=== PATIENT | female | born 1960 | race Caucasian/White ===

== ENCOUNTER 2019-06-20 12:17 | Emergency (ER) | payer MEDICAID ==
[2019-06-20] MEDS ORDERED: SODIUM CHLORIDE 0.9% 1,000 ML IV STA (12:56)
[2019-06-20] MEDS ORDERED: KETOROLAC 30 MG/ML 1 ML VIAL IVP STA (12:56)
[2019-06-20] MEDS ORDERED: ONDANSETRON 4 MG/2 ML VIAL IVP STA (12:56)
[2019-06-20] MEDS ORDERED: PANTOPRAZOLE 40 MG/10 ML VIAL IVP STA (12:56)
--- NOTE | 2019-06-20 13:03 | ED ---
Abdominal Pain HPI - General Chief Complaint: Abdominal Pain Stated Complaint: Nausea/Abdominal pain Time Seen by Provider: 06/20/19 12:42 Source: patient Mode of arrival: ambulatory Limitations: no limitations - History of Present Illness Initial Comments: Patient is 59-year-old female presenting to emergency Department with a chief complaint of abdominal pain. Patient reports over the last 2 weeks she is developed some constipation for which she used a stool softener and was able to have some bowel movements that were semisolid. Patient does report nausea but no vomiting. Does report increased frequency but denies urgency or dysuria. States the abdominal pain was initially diffuse but is now only located in the left flank region wrote a to the left groin. No previous abdominal hernia surgeries. No hematuria, hematochezia melena. - Related Data Previous Rx's Medication Instructions Recorded Ondansetron Odt [Zofran Odt] 4 mg PO Q8HR PRN #30 tab 06/20/19 Allergies Allergy/AdvReac Type Severity Reaction Status Date / Time No Known Allergies Allergy Verified 06/20/19 12:23 Review of Systems ROS Statement: Those systems with pertinent positive or pertinent negative responses have been documented in the HPI. ROS Other: All systems not noted in ROS Statement are negative. Past Medical History Past Medical History: No Reported History History of Any Multi-Drug Resistant Organisms: None Reported Past Surgical History: Appendectomy Past Psychological History: No Psychological Hx Reported Smoking Status: Current every day smoker Past Alcohol Use History: Rare Past Drug Use History: None Reported General Exam Limitations: no limitations General appearance: alert, in no apparent distress Head exam: Present: atraumatic, normocephalic, normal inspection Eye exam: Present: normal appearance, PERRL, EOMI Pupils: Present: normal accommodation ENT exam: Present: normal exam, mucous membranes moist Neck exam: Present: normal inspection, full ROM Respiratory exam: Present: normal lung sounds bilaterally Cardiovascular Exam: Present: regular rate, normal rhythm, normal heart sounds GI/Abdominal exam: Present: soft, tenderness (Mild diffuse abdominal tenderness). Absent: distended, guarding, rebound, rigid Extremities exam: Present: normal inspection, full ROM Back exam: Present: normal inspection, full ROM Neurological exam: Present: alert, oriented X3 Psychiatric exam: Present: normal affect, normal mood Skin exam: Present: warm, dry, intact, normal color Course Vital Signs 06/20/19 06/20/19 12:19 14:47 Temperature 98.6 F 98.0 F Pulse Rate 97 72 Respiratory 20 18 Rate Blood Pressure 137/78 122/70 O2 Sat by Pulse 98 98 Oximetry Medical Decision Making - Medical Decision Making Patient is a 59-year-old female presenting to emergency Department with a chief complaint of abdominal pain. She does have abdominal discomfort and mild abdominal tenderness that is diffuse on physical examination. Patient was given fluids, antiemetics and analgesia. Our evaluation patient reports improvement in symptoms. Laboratory workup is unremarkable. KUB shows air-fluid level suggesting enteritis. I suspect this could be one of the causes for irregularities in her bowel patterns. Patient advised to follow-up with primary care. Patient discharged with Zofran. Strict return parameters were thoroughly discussed with patient was understanding and agreeable. Case discussed with physician. - Lab Data Result diagrams: 06/20/19 13:14 06/20/19 13:14 Lab Results 06/20/19 06/20/19 06/20/19 Range/Units 13:14 13:14 13:14 WBC 7.6 (3.8-10.6) k/uL RBC 4.73 (3.80-5.40) m/uL Hgb 14.2 (11.4-16.0) gm/dL Hct 43.2 (34.0-46.0) % MCV 91.3 (80.0-100.0) fL MCH 30.0 (25.0-35.0) pg MCHC 32.9 (31.0-37.0) g/dL RDW 11.9 (11.5-15.5) % Plt Count 244 (150-450) k/uL Neutrophils % 72 % Lymphocytes % 19 % Monocytes % 4 % Eosinophils % 3 % Basophils % 1 % Neutrophils # 5.4 (1.3-7.7) k/uL Lymphocytes # 1.4 (1.0-4.8) k/uL Monocytes # 0.3 (0-1.0) k/uL Eosinophils # 0.2 (0-0.7) k/uL Basophils # 0.1 (0-0.2) k/uL Sodium 142 (137-145) mmol/L Potassium 4.0 (3.5-5.1) mmol/L Chloride 107 (98-107) mmol/L Carbon Dioxide 25 (22-30) mmol/L Anion Gap 10 mmol/L BUN 9 (7-17) mg/dL Creatinine 0.88 (0.52-1.04) mg/dL Est GFR (CKD-EPI)AfAm 83 (>60 ml/min/1.73 sqM) Est GFR (CKD-EPI)NonAf 72 (>60 ml/min/1.73 sqM) Glucose 91 (74-99) mg/dL Calcium 9.6 (8.4-10.2) mg/dL Total Bilirubin 0.5 (0.2-1.3) mg/dL AST 21 (14-36) U/L ALT 12 (4-34) U/L Alkaline Phosphatase 126 (38-126) U/L Total Protein 7.5 (6.3-8.2) g/dL Albumin 4.5 (3.5-5.0) g/dL Amylase 74 (30-110) U/L Lipase 184 (23-300) U/L Urine Color Light Yellow Urine Appearance Clear (Clear) Urine pH 6.0 (5.0-8.0) Ur Specific [place] 1.004 (1.001-1.035) Urine Protein Negative (Negative) Urine Glucose (UA) Negative (Negative) Urine Ketones Negative (Negative) Urine Blood Negative (Negative) Urine Nitrite Negative (Negative) Urine Bilirubin Negative (Negative) Urine Urobilinogen <2.0 (<2.0) mg/dL Ur Leukocyte Esterase Negative (Negative) Disposition Clinical Impression: Enteritis, Abdominal pain Disposition: HOME SELF-CARE Condition: Stable Instructions (If sedation given, give patient instructions): Abdominal Pain (ED) Additional Instructions: Please take prescribed medication as directed. Follow-up with primary care. Return to emergency department if symptoms worsen. Prescriptions: Ondansetron Odt [Zofran Odt] 4 mg PO Q8HR PRN #30 tab PRN Reason: Nausea Is patient prescribed a controlled substance at d/c from ED?: No Referrals: None,Stated [Primary Care Provider] - 1-2 days Time of Disposition: 14:36
[2019-06-20 13:28] LABS: Appearance,Urine Clear (Clear); Bilirubin,Urine Negative (Negative); Blood,Urine Negative (Negative); Color,Urine Light Yellow; Glucose,Urine (UA) Negative (Negative); Ketones,Urine Negative (Negative); Leukocyte Esterase,Urine Negative (Negative); Nitrite,Urine Negative (Negative); Protein,Urine Negative (Negative); Specific Gravity,Urine 1.004 (1.001-1.035); Urobilinogen,Urine <2.0 mg/dL (<2.0)
[2019-06-20 13:30] LABS: Basophils # (A) 0.1 k/uL (0-0.2); Basophils % (A) 1 %; Eosinophils # (A) 0.2 k/uL (0-0.7); Eosinophils % (A) 3 %; HCT 43.2 % (34.0-46.0); HGB 14.2 gm/dL (11.4-16.0); Lymphocytes # (A) 1.4 k/uL (1.0-4.8); Lymphocytes % (A) 19 %; MCHC 32.9 g/dL (31.0-37.0); MCV 91.3 fL (80.0-100.0); Mean Platelet Volume 9.6; Monocytes # (A) 0.3 k/uL (0-1.0); Monocytes % (A) 4 %; Neutrophils # (A) 5.4 k/uL (1.3-7.7); Neutrophils % (A) 72 %; Platelet Count 244 k/uL (150-450); RBC 4.73 m/uL (3.80-5.40); RDW 11.9 % (11.5-15.5); WBC 7.6 k/uL (3.8-10.6)
[2019-06-20 13:39] LABS: Albumin 4.5 g/dL (3.5-5.0); Calcium 9.6 mg/dL (8.4-10.2); Total Bilirubin 0.5 mg/dL (0.2-1.3); Total Protein 7.5 g/dL (6.3-8.2)
--- NOTE | 2019-06-20 13:57 | XR ---
KUB HISTORY: Abdominal pain, nausea and vomiting Frontal KUB and 2 images Lung bases are clear. There is no evident bowel obstruction or pneumoperitoneum. Suspect there are osorio rgical clips in the right lower quadrant. Probable vascular calcifications within the pelvis. There a re air-fluid levels without bowel distention. There is a dextroscoliosis centered at L2. IMPRESSION: Correlate for enteritis, ileus, follow-up as indicated
[2019-06-20 14:48] VITALS: BP 122/70; PULSE 72; RESP 18; TEMP 98
== END 2019-06-20 14:47 | disposition home or self-care (01) ==
LOC: EC 12:17
DX: K52.9 Noninfective gastroenteritis and colitis, unspecified (principal); F17.200 Nicotine dependence, unspecified, uncomplicated; Z90.49 Acquired absence of other specified parts of digestive tract
CPT/HCPCS: 36415; 74018; 80053; 81003; 82150; 83690; 85025; 96361; 96374; 96375; 99284

== ENCOUNTER → 2019-08-14 | Outpatient (CLI) | payer MEDICAID ==
--- NOTE | 2019-08-14 13:39 | CT ---
EXAMINATION TYPE: CT abdomen pelvis w con DATE OF EXAM: 08/14/2019 HISTORY: Diverticulitis of large intestine . Pain and fever. CT DLP: 814.2mGycm Automated Exposure Control for Dose Reduction was Utilized. CONTRAST: CT scan of the abdomen and pelvis is performed with IV Contrast, patient injected with 100 ml mL of I sovue 300. COMPARISON: None. FINDINGS: LUNG BASES: Linear scarring or atelectasis lingula axial image 1. LIVER/GB: No significant abnormality is appreciated. PANCREAS: No significant abnormality is seen. SPLEEN: No significant abnormality is seen. ADRENALS: No significant abnormality is seen. KIDNEYS: No significant abnormality is seen. BOWEL: The oral contrast reaches the level of the splenic flexure making evaluation of distal bowel s lightly suboptimal. Cecum is slightly wandering and position anteriorly to the lower midabdomen. Cecu m is mildly prominent. There is no suspicious small bowel dilatation. Terminal ileum thought present from the lateral aspect of cecum coronal image 31. There is mild to moderate wall thickening in the s igmoid colon with more moderate to severe concentric wall thickening sigmoid rectal colon. There is m ild to moderate ill-defined fluid and fat stranding in the pelvis extending posteriorly into the pres acral space. UTERUS/ADNEXA: Anteverted uterus. Scattered pelvic phleboliths. LYMPH NODES: No greater than 1cm abdominal or pelvic lymph nodes are appreciated. OSSEOUS STRUCTURES: No significant abnormality is seen. OTHER: No significant additional abnormality is seen. IMPRESSION: 1. Abnormality in the mid to distal sigmoid colon through the rectum centered in the pelvis with ill- defined fluid and fat stranding extending into the presacral space. A fairly moderate acute uncomplic ated distal colitis is suspected. Findings could be product of acute diverticulitis as there are few scattered sigmoid colonic diverticula noted. I am however suspicious as degree of wall thickening is out of proportion to expected in the distal sigmoid colon and rectum with some eccentric appearance f or reference coronal image 66 and I advise follow-up colonoscopy after treatment to rule out neoplasm .
== END | disposition home or self-care (01) ==
LOC: RADCTMAIN 11:11
PROVIDERS: ATTEND Surgery
DX: R93.3 Abnormal findings on diagnostic imaging of other parts of digestive tract (principal); R93.89 Abnormal findings on diagnostic imaging of other specified body structures; K57.30 Diverticulosis of large intestine without perforation or abscess without bleeding
CPT/HCPCS: 74177; Q9967

== ENCOUNTER 2019-08-20 08:23 | Day surgery (SDC) | payer MEDICAID ==
[2019-08-18 15:03] VITALS: BMI 27.8
[~2019-08-20 08:23] MED LIST: DEXAMETHASONE SOD PHOSPHATE 10 MG/ML 1 ML VIAL IV ONE; LACTATED RINGERS 1,000 ML IV SCH; ONDANSETRON 4 MG/2 ML VIAL IVP ONE
[2019-08-20 08:48] VITALS: TEMP 98.5
[2019-08-20] MEDS ORDERED: LIDOCAINE 1% (10MG/ML) FOR IV START INTRADERMA ONE (08:48)
[2019-08-20] MEDS ORDERED: LACTATED RINGERS 1,000 ML IV ONE (08:48)
--- NOTE | 2019-08-20 08:59 | P.GSHP ---
History of Present Illness H&P Date: 08/20/19 Chief Complaint: Rectal bleeding 59-year-old female has had complaints of change in bowel habits along with rectal bleeding and left lower quadrant pain. Underwent recent CAT scan showing thickening of the rectum with some inflammatory changes in the pelvis. Was started on antibiotics. Symptoms have been going on for the last 2-3 months. No fevers. Last colonoscopy normal. Past Medical History Past Medical History: No Reported History Additional Past Medical History / Comment(s): "stomach issues" History of Any Multi-Drug Resistant Organisms: None Reported Past Surgical History: Appendectomy Past Anesthesia/Blood Transfusion Reactions: No Reported Reaction Smoking Status: Current every day smoker - Past Family History Mother Family Medical History: No Reported History Medications and Allergies Home Medications Medication Instructions Recorded Confirmed Type Levofloxacin [Levaquin] 500 mg PO DAILY 7 Days #7 tab 08/15/19 08/18/19 Rx Allergies Allergy/AdvReac Type Severity Reaction Status Date / Time No Known Allergies Allergy Verified 08/18/19 14:58 Surgical - Exam Physical exam: General: Well-developed, well-nourished HEENT: Normocephalic, sclerae nonicteric Abdomen: Mild left lower quadrant tenderness, nondistended Extremities: No edema Neuro: Alert and oriented Assessment and Plan (1) Rectal bleeding Narrative/Plan: Will proceed with colonoscopy at this time Status: Acute Code(s): K62.5 - HEMORRHAGE OF ANUS AND RECTUM SNOMED Code(s): 89247981
[2019-08-20] MEDS ORDERED: PROPOFOL 10 MG/ML 20 ML VIAL IV ONE (09:43)
--- NOTE | 2019-08-20 10:18 | P.PCN ---
Date of Procedure: 08/20/19 Procedure(s) Performed: PREOPERATIVE DIAGNOSIS: Rectal bleeding, change in bowel habits, abnormal CAT scan POSTOPERATIVE DIAGNOSIS: Rectal mass, ascending colon polyp, diverticulosis PROCEDURE: Colonoscopy with snare polypectomy and biopsy ANESTHESIA: MAC SURGEON: Andrea Levi M.D. SPECIMENS: Ascending colon polyp, rectal mass ENDOSCOPIC PROCEDURE: The patient was placed on the endoscopy table in the left decubitus position. The Olympus colonoscope was inserted into the anus and passed under direct visualization to the base of the cecum. The appendiceal orifice was visualized. From that point the scope was slowly withdrawn inspecting all surfaces carefully. There were no neoplastic inflammatory or polypoid lesions throughout the cecum. In the mid ascending colon a 1-1.5 cm sessile polyp was removed as one piece using the snare with cautery technique. The remainder of the ascending transverse and descending colon appeared normal. There was mild sided diverticulosis. Starting at approximately 18 cm and extending down to 5-6 cm was a large rectal mass. This appeared neoplastic. N umerous biopsies with the cold biopsy forceps took place. By palpation this was present at 4-5 cm. This was circumferential in certain areas. The scope was able to navigate through this with only mild difficulty. The patient was taken to the recovery room in stable condition per anesthesia guidelines. RECOMMENDATIONS: Patient already had screening CAT scan. Patient will benefit from pelvic radiation. We'll arrange outpatient referral to both oncology and radiation oncology at this point. Await biopsies.
[2019-08-20 10:41] VITALS: BP 132/82; PULSE 62; RESP 18
== END 2019-08-20 11:10 | disposition home or self-care (01) ==
LOC: ORWHC2ENDO 08:23
PROVIDERS: ATTEND Surgery
DX: D01.2 Carcinoma in situ of rectum (principal); D12.2 Benign neoplasm of ascending colon; K57.31 Diverticulosis of large intestine without perforation or abscess with bleeding; F17.200 Nicotine dependence, unspecified, uncomplicated; Z90.49 Acquired absence of other specified parts of digestive tract
CPT/HCPCS: 88305; 45380; 45385; J2704

== ENCOUNTER → 2019-08-25 | Outpatient (CLI) | payer MEDICAID ==
--- NOTE | 2019-08-26 09:03 | MR ---
EXAMINATION TYPE: MR pelvis wo/w con DATE OF EXAM: 08/25/2019 COMPARISON: CT abdomen pelvis dated 08/14/2019 HISTORY: Rectal mass. Prior surgical history of appendectomy. Standard multiplanar, multisequence MRI departmental protocol utilizing 7 mL intravenous Gadavist gadolinium contrast. FINDINGS: Beginning approximately 6.1 cm from the anal verge there is eccentric predominantly anterior wall thi ckening becoming a circumferential enhancing annular mass on axial T2 nonfat sat image 28. The rectal mass continues at least 4.0 cm however there is sigmoid circumferential wall thickening in the visua lized portions of the distal sigmoid colon that may be residual from the recent inflammatory process. The normal T2 hypointense band representing the muscularis propria has a hazy margin posteriorly lef t laterally on image 32 of the T2 nonfat sat axial sequence with haziness of the mesial rectal fat. T his is also seen anteriorly on image 32. On the most cranial image there are morphologically abnormal lymph nodes abutting the left lateral aspect of the cranial rectum.r the lymph nodes measure up to 5 mm in short axis and there are at least 4 abnormal-appearing lymph nodes. There is no involvement of the cervix nor lower uterine segment as the mass does not abut the uterus nor cervix and there is a clean fat plane between the 2. There remains fat stranding contained within the mesorectal fat with no extension beyond the medial rectal fat. The submucosa within the measured tumor is hypointense indicative of submucosal involvement. Sigmoid diverticula are seen more proximally in the sigmoid colon without proximal pericolonic fat st randing. Incidental note of a nabothian cyst within the cervix, a benign finding. No internal nor ext ernal iliac chain inguinal adenopathy or superficial inguinal adenopathy seen. Bone marrow signal of the visualized osseous structures appears grossly unremarkable. IMPRESSION: The known rectal carcinoma is questioned to be subtly stage T3 as there is disruption of the muscular is propria with few spiculations into the mesorectal fat. However given the mild appearance and minim al disruption this could also represent benign desmoplastic reaction. There is involvement multifocal ly of the submucosa and abnormal (at least 4) perirectal lymph node in the mesorectal fat. The tumor extends at least 4 cm beginning approximately 6.1 cm from the anal verge, however there is circumfere ntial thickening of the adjacent sigmoid colon and fat stranding into the presacral space that may be residual from the recent inflammatory colitis/diverticulitis. No suspicious osseous lesions in the v isualized pelvis.
== END | disposition home or self-care (01) ==
LOC: RADMRIMAIN 09:36
PROVIDERS: ATTEND Surgery
DX: C20 Malignant neoplasm of rectum (principal)
CPT/HCPCS: 72197; A9585

== ENCOUNTER → 2019-08-29 | Outpatient (CLI) | payer MEDICAID ==
--- NOTE | 2019-09-01 12:01 | PE ---
Nuclear medicine PET/CT HISTORY: Colorectal carcinoma, initial Patient received 9.1 mCi F-18 FDG intravenously in delayed scanning was performed from the skull base to the mid thighs. Localization and attenuation correction CT scan was performed. Correlation CT scan 08/14/2019 neck and CHEST: There is no cervical adenopathy. No mediastinal, axillary, hilar, supraclavicular pascual nopathy. No suspicious hypermetabolic uptake. No evident lung mass. There is no pleural or pericardia l effusion. Likely some retained secretions within the trachea, posterior luminal abnormality noted. ABDOMEN: There is no ascites. No evident liver mass. No retroperitoneal adenopathy. Abnormal thickeni ng along the rectosigmoid colon is present, there is associated hypermetabolic uptake, SUV 13.8. Incr eased density within the localized fat at this level is again noted as previously described. Along th e left hemipelvis coursing into the left hemiabdomen, axial image #[id number] there is abnormal soft tis rudi which may represent adenopathy within the fat extending from the level of the rectal mass, hyperm etabolic uptake is associated, SUV 5.2. There is some fluid attenuation present in the presacral loca tion. Postop changes are noted to the colon at the level of the cecum, metallic densities are scatter ed in the right lower quadrant Osseous structures show no hypermetabolic uptake. IMPRESSION: Findings compatible with patient's history of colon carcinoma with probable adenopathy as described extending within the left pelvic fat and coursing cephalad in the lower left abdomen.
== END | disposition home or self-care (01) ==
LOC: RADPETMAIN 10:21
PROVIDERS: ATTEND Internal Medicine Hematology & Oncology
DX: C20 Malignant neoplasm of rectum (principal)
CPT/HCPCS: 78815; A9552

== ENCOUNTER → 2019-09-02 | Outpatient (CLI) | payer MEDICAID ==
[2019-09-02 12:34] LABS: Basophils % (A) 1 %; Eosinophils # (A) 0.2 k/uL (0-0.7); Eosinophils % (A) 2 %; HCT 43.1 % (34.0-46.0); HGB 14.5 gm/dL (11.4-16.0); Lymphocytes # (A) 1.9 k/uL (1.0-4.8); Lymphocytes % (A) 26 %; MCHC 33.7 g/dL (31.0-37.0); Mean Platelet Volume 9.3; Monocytes # (A) 0.4 k/uL (0-1.0); Monocytes % (A) 5 %; Neutrophils # (A) 4.8 k/uL (1.3-7.7); Neutrophils % (A) 66 %; Platelet Count 260 k/uL (150-450); RBC 4.68 m/uL (3.80-5.40); WBC 7.3 k/uL (3.8-10.6)
[2019-09-02 18:23] LABS: African American GFR (CKD) 70.9 (60.0-200.0); Albumin 4.6 g/dL (3.80-4.90); Albumin/Globulin Ratio 2.42 (1.60-3.17); Anion Gap 9.7 mmol/L (4.00-12.00); Calcium 9.8 mg/dL (8.7-10.3); Carbon Dioxide 26.3 mmol/L (21.6-31.8); Globulin 1.9 g/dL (1.6-3.3); Non-African American GFR(CKD) 61.2 (60.0-200.0); Potassium 4.3 mmol/L (3.5-5.5); Total Bilirubin 0.4 mg/dL (0.2-1.2); Total Protein 6.5 g/dL (6.2-8.2)
== END | disposition home or self-care (01) ==
LOC: LABWHC1 12:03
PROVIDERS: ATTEND Internal Medicine Hematology & Oncology
DX: C20 Malignant neoplasm of rectum (principal)
CPT/HCPCS: 36415; 80053; 82378; 85025

== ENCOUNTER → 2020-02-06 | Day surgery (SDC) | payer MEDICAID ==
[2020-02-03 11:16] VITALS: BMI 24.2
[~2020-02-06] MED LIST changes: +ACETAMINOPHEN TAB 500 MG TAB PO ONE; +HEPARIN SODIUM,PORCINE 100 UNIT/ML 5 ML VIAL IV ONE; +HEPARIN SODIUM,PORCINE 5,000 UNIT/ML 1 ML VIAL SQ ONE; +HYDROmorphone 0.5 MG/0.5 ML SYRINGE IVP PRN; +LIDOCAINE 1% INJ 10MG/ML (20 ML MDV) ONE; +LIDOCAINE 1% INJ 10MG/ML (20 ML MDV) SQ ONE; +MIDAZOLAM 2 MG/2 ML VIAL IV PRN; +MIDAZOLAM 2 MG/2 ML VIAL ONE; +NALOXONE 0.4 MG/ML 1 ML VIAL IV PRN; +PROPOFOL 10 MG/ML 20 ML VIAL IV ONE; +Pre Op ABX Message 1 EACH MISC MISCELLANE ONE; +SCOPOLAMINE 1.5MG/72HR PATCH TRANSDERM ONE; +SODIUM CHLORIDE 0.9% 100 ML with ceFAZolin 2,000 MG IV ONE; +fentaNYL (PF) 50 MCG/ML 2 ML AMP ONE; +traMADol 50 MG TAB PO PRN
--- NOTE | 2020-02-06 08:49 | P.GSHP ---
History of Present Illness H&P Date: 02/06/20 Chief Complaint: Rectal cancer 60-year-old female diagnosed with rectal cancer in August of this year. Patient underwent neoadjuvant chemoradiation followed by definitive resection at [facility]. Here today for Port-A-Cath placement for adjuvant chemo. She has not had a port previously. Past Medical History Past Medical History: Cancer Additional Past Medical History / Comment(s): RECTAL CANCER DX 08/20/19 History of Any Multi-Drug Resistant Organisms: None Reported Past Surgical History: Appendectomy, Bowel Resection Additional Past Surgical History / Comment(s): COLONOSCOPY. LOWER ANTERIOR RESECTION 12/24/19. TEMPORARY ILEOSTOMY Past Anesthesia/Blood Transfusion Reactions: No Reported Reaction Smoking Status: Former smoker - Past Family History Mother Family Medical History: No Reported History Medications and Allergies Home Medications Medication Instructions Recorded Confirmed Type Ibuprofen [Motrin Ib] 600 mg PO Q6H PRN 02/03/20 02/03/20 History Allergies Allergy/AdvReac Type Severity Reaction Status Date / Time No Known Allergies Allergy Verified 02/06/20 08:11 Surgical - Exam Vital Signs Temp Pulse Resp BP Pulse Ox 97.6 F 89 16 123/53 97 02/06/20 08:00 02/06/20 08:00 02/06/20 08:00 02/06/20 08:00 02/06/20 08:00 Physical exam: General: Well-developed, well-nourished HEENT: Normocephalic, sclerae nonicteric Abdomen: Nontender, nondistended, recent scars and ileostomy Extremities: No edema Neuro: Alert and oriented Assessment and Plan (1) Rectal cancer Narrative/Plan: Patient doing well at this time. We'll proceed with Port-A-Cath placement. Risks of bleeding, infection, DVT, pneumothorax, catheter malfunction, anesthesia related complications were discussed. The patient understands and wishes to proceed. Current Visit: Yes Status: Acute Code(s): C20 - MALIGNANT NEOPLASM OF RECTUM SNOMED Code(s): 373516359
[2020-02-06 09:49] VITALS: TEMP 98.3
--- NOTE | 2020-02-06 09:52 | P.OP ---
Date of Procedure: 02/06/20 Procedure(s) Performed: PREOPERATIVE DIAGNOSIS: Rectal cancer POSTOPERATIVE DIAGNOSIS: Same PROCEDURE: Port-A-Cath placement with fluoroscopic and ultrasound guidance SURGEON: Gurmeet EBL: Minimal ANESTHESIA: Sedation COMPLICATIONS: None OPERATIVE PROCEDURE: Patient was brought and placed on the operative table in the supine position. The patient was sedated per anesthesia that time. The chest and neck were prepped and draped in usual sterile fashion. The ultrasound probe was used to identify the location of the right internal jugular vein. The skin was localized with lidocaine. The Seldinger needle was advanced into the IJ under ultrasound guidance. The wire was advanced through the needle under fluoroscopic guidance into the superior vena cava. A port pocket was created in the right infraclavicular location. The catheter was tunneled from the wire entrance site to the port pocket. The port was then connected to the catheter. The dilator introducer was threaded over the guidewire. The guidewire and dilator were then removed. The catheter was advanced through the introducer and introducer was then removed. The tip was seen to be in the right atrial junction via fluoroscopy. A picture of the radiograph showing the tip at the radial digital junction was taken. Port was flushed with both saline and a Hep- Lock solution. There was good flow both in and out of the port. The port was sutured in underlying tissues using 3-0 silk sutures. The subcutaneous tissues were reapproximated using 3-0 Vicryl sutures and the skin at both locations using 4-0 Monocryl sutures. Skin glue and sterile dressings then applied. DISPOSITION: Stable to recovery room
[2020-02-06 10:06] VITALS: RESP 18
--- NOTE | 2020-02-06 10:24 | XR ---
EXAMINATION TYPE: XR chest 1V confirm line [facility] DATE OF EXAM: 02/06/2020 COMPARISON: PET CT August 28, 2009. HISTORY: Rectal cancer. Status post line placement. TECHNIQUE: Single AP portable frontal upright view of the chest is obtained. FINDINGS: There is right internal jugular Mediport catheter terminating in SVC. There is no focal air space opacity, pleural effusion, or pneumothorax seen after catheter insertion. The cardiac silhoue tte size remains within normal limits. The osseous structures are intact. IMPRESSION: New right internal jugular Mediport catheter terminates in SVC. No pneumothorax noted.
--- NOTE | 2020-02-06 10:33 | FL ---
Fluoroscopy HISTORY: Port-A-Cath placement 19 seconds fluoroscopy time supplied to the referring clinician. 2 intraoperative C-arm images docum ent the procedure. See dictated report from general surgery.
[2020-02-06 11:01] VITALS: BP 107/69; PULSE 70
== END ==
LOC: OR 07:21
PROVIDERS: ATTEND Surgery
DX: C20 Malignant neoplasm of rectum (principal); Z87.891 Personal history of nicotine dependence; Z79.1 Long term (current) use of non-steroidal anti-inflammatories (NSAID); Z90.49 Acquired absence of other specified parts of digestive tract; Z93.2 Ileostomy status; Z92.21 Personal history of antineoplastic chemotherapy; Z92.3 Personal history of irradiation
CPT/HCPCS: 77001; 36561; C1788; J2250; J1644; J1642; J1100; J2405; J0690; J2001; J3010; J2704

== ENCOUNTER → 2020-06-23 | Outpatient (CLI) | payer MEDICAID ==
--- NOTE | 2020-06-23 11:47 | US ---
EXAMINATION TYPE: US venous doppler duplex LE BI DATE OF EXAM: 06/23/2020 11:26 AM COMPARISON: NONE CLINICAL HISTORY: M79.662 PAIN LT LOWER LIMB, M79.661 PAIN RT LOWER LIMB. Pain SIDE PERFORMED: TECHNIQUE: The lower extremity deep venous system is examined utilizing real time linear array sonog selina with graded compression, doppler sonography and color-flow sonography. VESSELS IMAGED: Common Femoral Vein Deep Femoral Vein Greater Saphenous Vein * Femoral Vein Popliteal Vein Small Saphenous Vein * Proximal Calf Veins (* superficial vessels) Right Leg: Negative for DVT Left Leg: Negative for DVT IMPRESSION: 1. Bilateral lower extremity ultrasound negative for deep venous thrombosis.
== END | disposition home or self-care (01) ==
LOC: RADUSWWP 10:59
PROVIDERS: ATTEND Internal Medicine Hematology & Oncology
DX: M79.661 Pain in right lower leg (principal); M79.662 Pain in left lower leg
CPT/HCPCS: 93970

== ENCOUNTER → 2020-07-20 | Outpatient (CLI) | payer MEDICAID ==
[2020-07-20 19:15] LABS: Basophils # (A) 0.05 X 10*3/uL (0.00-0.10); Basophils % (A) 0.6 %; Eosinophils # (A) 0.01 X 10*3/uL (0.04-0.35); Eosinophils % (A) 0.1 %; HCT 33.5 % (37.2-46.3); HGB 11.2 g/dL (12.0-15.0); Lymphocytes # (A) 0.58 X 10*3/uL (0.90-5.00); Lymphocytes % (A) 7.2 %; MCHC 33.4 g/dL (32.0-37.0); MCV 98.8 fL (80.0-97.0); Mean Platelet Volume 12.5 fL (9.5-12.2); Monocytes # (A) 0.58 X 10*3/uL (0.20-1.00); Monocytes % (A) 7.2 %; Neutrophils # (A) 6.71 X 10*3/uL (1.80-7.70); Neutrophils % (A) 83.9 %; Platelet Count 59 X 10*3/uL (140-440); RBC 3.39 X 10*6/uL (4.10-5.20); RDW 14.1 % (11.5-14.5); WBC 8.01 X 10*3/uL (4.50-10.00)
[2020-07-21 01:09] LABS: African American GFR (CKD) 70.4 (60.0-200.0); Albumin 4.3 g/dL (3.80-4.90); Albumin/Globulin Ratio 1.39 (1.60-3.17); Anion Gap 9.1 mmol/L (4.00-12.00); Calcium 9.2 mg/dL (8.7-10.3); Carbon Dioxide 19.9 mmol/L (21.6-31.8); Globulin 3.1 g/dL (1.6-3.3); Non-African American GFR(CKD) 60.8 (60.0-200.0); Potassium 4.3 mmol/L (3.5-5.5); Total Bilirubin 0.7 mg/dL (0.3-1.2); Total Protein 7.4 g/dL (6.2-8.2)
== END | disposition home or self-care (01) ==
LOC: LABWHC1 12:03
PROVIDERS: ATTEND Internal Medicine Hematology & Oncology
DX: C20 Malignant neoplasm of rectum (principal); G62.0 Drug-induced polyneuropathy
CPT/HCPCS: 36415; 80053; 82378; 83735; 85025

== ENCOUNTER → 2020-08-27 | Outpatient (CLI) | payer MEDICAID ==
--- NOTE | 2020-08-29 22:01 | CT ---
EXAMINATION TYPE: CT ChestAbdPelvis w con DATE OF EXAM: 08/27/2020 INDICATION: Follow up for rectal cancer. COMPARISON: At CT 08/29/2019 CT DLP: 754.6 mGycm CONTRAST: Performed with Oral Contrast and with IV Contrast, patient injected with 100ml mL of Isovue 300. TECHNIQUE: Axial images at 5 mm thick sections. Reconstructed images in the coronal plane. Delayed images through the kidneys. FINDINGS: CT CHEST: Portion of the thyroid visualized is normal. No suspicious lung nodules or focal infiltrates are present. No enlarged mediastinal or hilar adenopathy is evident. The ascending aorta diameter at the level of the main pulmonary artery is 2.8 cm. The main pulmonary artery diameter at the bifurcation is 2.[address] ABDOMEN: There is an ostomy in the right midabdomen. Contrast extends to the ostomy. Liver: There is a 0.5 cm echodensity within the posterior right lobe liver not identified previously. Series 4 image 53. This is nonspecific. Consider closer evaluation with ultrasound. There is a subtl e hypodensity within the left lobe liver measuring 0.3 cm. Series 4 image 58. This may been present o n 08/14/2019 CT exam. Spleen: Normal Pancreas: Normal Adrenal glands: The adrenal glands are normal. Gallbladder: Gallstone is present. Kidneys: No masses are evident. No hydronephrosis is present. No cysts are present. Delayed images were obtained through the kidneys, which remain unremarkable. Aorta: Vascular calcification is within the aorta. Inferior vena cava: Normal. CT PELVIS: Presacral space is thickening with displacement of the rectum anteriorly approximately 1.8 cm. This is an interval change. Recurrent mass or adenopathy should be considered at this level. Colon appears thickened through the ascending colon at the level of the cecum. Distal ascending colon appears normal. Transverse colon appears normal. Descending colon is unremarkable. Small bowel loops contain contrast. There are loops of bowel which are incompletely distended or lack oral contrast li miting their evaluation. Appendix: Not identified. Urinary bladder: Normal. Genitourinary structures: Uterus appears normal. Adnexal regions are clear. Osseous structures: No suspicious lytic or sclerotic lesions. IMPRESSIONS: 1. Thickening in the presacral space suspicious for recurrence. Additional workup is recommended. 2. Couple of hypodensities within the liver which are nonspecific. One of these is likely a small hep atic cyst. The second however may not have been present previously. Additional workup with ultrasound is recommended. 3. Cholelithiasis
== END | disposition home or self-care (01) ==
LOC: RADPROMAIN 13:49
PROVIDERS: ATTEND Internal Medicine Hematology & Oncology
DX: C20 Malignant neoplasm of rectum (principal); K80.20 Calculus of gallbladder without cholecystitis without obstruction; R93.2 Abnormal findings on diagnostic imaging of liver and biliary tract
CPT/HCPCS: 82565; 84520; 71260; 74177; 36415; J1642; Q9967

== ENCOUNTER → 2020-09-04 | Outpatient (CLI) | payer MEDICAID ==
--- NOTE | 2020-09-06 08:50 | PE ---
EXAMINATION TYPE: PET CT fusion skull to thigh DATE OF EXAM: 09/04/2020 COMPARISON: Most recent CT chest abdomen and pelvis August 27, 2020. Prior PET/CT August 29, 2019. HISTORY: Rectal cancer with history of surgery and radiation treatment and subsequent chemotherapy completed July 13, recent abnormal CT. TECHNIQUE: Following the intravenous administration of 11.77 mCi of F-18 FDG, whole body images are performed from the skull base to the midthigh. Images are reviewed on the computer in the coronal, a xial, and sagittal planes. Reconstructed rotating images are created on independent workstation and reviewed on the computer. A localization and attenuation correction CT is performed in conjunction with the PET scan. Blood glucose level equals 95. SCAN: Subsequent Scan FINDINGS: SKULL BASE AND NECK: No new areas of suspicious hypermetabolic uptake. CHEST, MEDIASTINUM, AND HILAR REGION: No new areas of suspicious hypermetabolic uptake. ABDOMEN AND PELVIS: Since prior PET/CT redemonstration of interval surgical changes in the level of t he sigmoid rectal colon with right-sided ostomy. Parastomal hernia containing nondilated small bowel loop redemonstrated. Focal scarring inferior to this in the anterior abdominal wall on the right side is again seen. There is abnormal soft tissue in the presacral space image 186 is ametabolic corresponding with most recent CT. There is however suspicious increased uptake inferior to this near site of sutures in the presacral space of the remnant rectum image 194 at site of concentric moderate to severe wall thicken ing, max SUV is 7.75. Uptake in the left pelvis corresponds to level of the distal left ureter. No residual suspicious upta ke at this level identified. OSSEOUS STRUCTURES: No new areas of suspicious hypermetabolic uptake. OTHER CT: Redemonstration of right internal jugular Mediport catheter terminating in SVC. Small dependent calcified gallstones. Somewhat prominent small bowel loops anterior right pelvis are redemonstrated. There are several scattered pelvic phleboliths redemonstrated. Exaggerated curvature thoracolumbar spine noted. IMPRESSION: Residual or recurrent active neoplasm at site of surgery suspected as detailed above. No suspicious hypermetabolic uptake superior to this in the presacral space to suggest active neoplasm a t this level, favor surgical scarring. No new metastatic disease seen.
== END | disposition home or self-care (01) ==
LOC: RADPETMAIN 08:51
PROVIDERS: ATTEND Internal Medicine Hematology & Oncology
DX: C20 Malignant neoplasm of rectum (principal)
CPT/HCPCS: 78815; A9552

== ENCOUNTER 2020-10-14 11:46 | Day surgery (SDC) | payer MEDICAID ==
[2020-10-12 13:41] VITALS: BMI 24.3
[~2020-10-14 11:46] MED LIST changes: -ACETAMINOPHEN TAB 500 MG TAB PO ONE; -DEXAMETHASONE SOD PHOSPHATE 10 MG/ML 1 ML VIAL IV ONE; +DEXAMETHASONE SOD PHOSPHATE 4 MG/ML 1 ML VIAL IV ONE; -HEPARIN SODIUM,PORCINE 100 UNIT/ML 5 ML VIAL IV ONE; -HEPARIN SODIUM,PORCINE 5,000 UNIT/ML 1 ML VIAL SQ ONE; +HEPARIN SODIUM,PORCINE/PF 5,000 UNIT/0.5 ML SYRINGE SQ PRN; -LACTATED RINGERS 1,000 ML IV SCH; -LIDOCAINE 1% INJ 10MG/ML (20 ML MDV) ONE; -LIDOCAINE 1% INJ 10MG/ML (20 ML MDV) SQ ONE; -MIDAZOLAM 2 MG/2 ML VIAL IV PRN; -MIDAZOLAM 2 MG/2 ML VIAL ONE; -NALOXONE 0.4 MG/ML 1 ML VIAL IV PRN; -PROPOFOL 10 MG/ML 20 ML VIAL IV ONE; -Pre Op ABX Message 1 EACH MISC MISCELLANE ONE; -SCOPOLAMINE 1.5MG/72HR PATCH TRANSDERM ONE; -SODIUM CHLORIDE 0.9% 100 ML with ceFAZolin 2,000 MG IV ONE; -fentaNYL (PF) 50 MCG/ML 2 ML AMP ONE; -traMADol 50 MG TAB PO PRN
[2020-10-14] MEDS ORDERED: LIDOCAINE 1% (10MG/ML) FOR IV START INTRADERMA ONE (12:19)
[2020-10-14] MEDS: LACTATED RINGERS 1,000 ML IV SCH ×2 (12:19→14:20)
[2020-10-14] MEDS ORDERED: FAMOTIDINE 20 MG/2 ML VIAL IV ONE (12:27)
--- NOTE | 2020-10-14 12:28 | P.GSHP ---
History of Present Illness H&P Date: 10/14/20 Chief Complaint: Rectal cancer Patient here today for Port-A-Cath removal. Port was placed last year for the treatment of rectal cancer. Patient is currently cancer free. She has not used the port for the past few months. No pain at the port site. Past Medical History Past Medical History: Cancer, GERD/Reflux Additional Past Medical History / Comment(s): RECTAL CANCER DX 08/20/19, has had chemo and radiation. Last chemo 07/13/19 History of Any Multi-Drug Resistant Organisms: None Reported Past Surgical History: Appendectomy, Bowel Resection, Tubal Ligation Additional Past Surgical History / Comment(s): COLONOSCOPY,LOWER ANTERIOR RESECTION 12/24/19 ILEOSTOMY, port a cath Past Anesthesia/Blood Transfusion Reactions: No Reported Reaction Smoking Status: Former smoker - Past Family History Mother Family Medical History: No Reported History Medications and Allergies Home Medications Medication Instructions Recorded Confirmed Type Famotidine [Pepcid] 20 mg PO DAILY PRN 10/12/20 10/14/20 History Loratadine [Claritin] 10 mg PO DAILY PRN 10/12/20 10/14/20 History Vitamin D3 2,000 units PO DAILY 10/12/20 10/14/20 History Allergies Allergy/AdvReac Type Severity Reaction Status Date / Time No Known Allergies Allergy Verified 10/14/20 12:11 Surgical - Exam Vital Signs Temp Pulse Resp BP Pulse Ox 98.3 F 69 16 116/58 97 10/14/20 12:05 10/14/20 12:05 10/14/20 12:05 10/14/20 12:05 10/14/20 12:05 Physical exam: General: Well-developed, well-nourished HEENT: Normocephalic, sclerae nonicteric Abdomen: Nontender, nondistended Extremities: No edema Neuro: Alert and oriented Chest: Right-sided Port-A-Cath noted Assessment and Plan (1) Rectal cancer Narrative/Plan: Will proceed with Port-A-Cath removal at this time. Current Visit: No Status: Acute Code(s): C20 - MALIGNANT NEOPLASM OF RECTUM SNOMED Code(s): 378350415
[2020-10-14] MEDS ORDERED: MIDAZOLAM 2 MG/2 ML VIAL ONE (13:01)
[2020-10-14] MEDS ORDERED: fentaNYL (PF) 50 MCG/ML 2 ML AMP ONE (13:01)
[2020-10-14] MEDS ORDERED: LIDOCAINE 1% INJ 10MG/ML (20 ML MDV) ONE (13:01)
[2020-10-14] MEDS ORDERED: PROPOFOL 10 MG/ML 20 ML VIAL IV ONE (13:01)
[2020-10-14] MEDS ORDERED: PHENYLEPHRINE-0.9% NACL SYG 1,000 MCG/10 ML SYRINGE ONE (13:01)
[2020-10-14] MEDS ORDERED: BUPIVACAINE-EPI 0.5%-1:200,000 10 ML VIAL SQ ONE (13:26)
[2020-10-14] MEDS ORDERED: NALOXONE 0.4 MG/ML 1 ML VIAL IV PRN (13:39)
--- NOTE | 2020-10-14 13:40 | P.OP ---
Date of Procedure: 10/14/20 Procedure(s) Performed: PREOPERATIVE DIAGNOSIS: Rectal cancer POSTOPERATIVE DIAGNOSIS: Same PROCEDURE: Port-A-Cath removal SURGEON: Gurmeet EBL: Minimal ANESTHESIA: Sedation COMPLICATIONS: None OPERATIVE PROCEDURE: Patient was placed in the supine position. The patient was sedated per anesthesia that time. The chest was prepped and draped in the usual sterile fashion. The skin was localized with Marcaine solution. The previous incision was re-incised using a scalpel. The port was easily excised using accommodation of blunt dissection sharp dissection and electrocautery. The subcutaneous tissues were reapproximated using 3-0 Vicryl sutures. The skin was reapproximated using 4-0 Monocryl sutures. Skin glue was then applied. DISPOSITION: Stable to recovery room
[2020-10-14 13:44] VITALS: TEMP 98.2
[2020-10-14 14:26] VITALS: RESP 18
[2020-10-14 14:53] VITALS: BP 106/64; PULSE 67
== END 2020-10-14 15:04 | disposition home or self-care (01) ==
LOC: OR 11:46
PROVIDERS: ATTEND Surgery
DX: Z45.2 Encounter for adjustment and management of vascular access device (principal); K21.9 Gastro-esophageal reflux disease without esophagitis; Z85.048 Personal history of other malignant neoplasm of rectum, rectosigmoid junction, and anus; Z87.891 Personal history of nicotine dependence; Z92.21 Personal history of antineoplastic chemotherapy; Z92.3 Personal history of irradiation; Z90.89 Acquired absence of other organs; Z90.49 Acquired absence of other specified parts of digestive tract; Z98.51 Tubal ligation status; Z98.890 Other specified postprocedural states
CPT/HCPCS: 36590; J2250; J1100; J0690; J2405; J2001; J3010; J2370; J2704; J1644

== ENCOUNTER → 2020-11-29 | Outpatient (CLI) | payer MEDICAID ==
--- NOTE | 2020-11-29 14:55 | CT ---
EXAMINATION TYPE: CT ChestAbdPelvis wo/w con DATE OF EXAM: 11/29/2020 COMPARISON: PET CT fusion 09/04/2020 HISTORY: f/u rectal ca CT DLP: 1276 mGycm CONTRAST: CT scan of the chest, abdomen and pelvis is performed with Oral Contrast and without and with IV Cont rast, patient injected with 100 mL of Isovue 300. CT Chest: LUNGS: The lungs are clear and free of infiltrate or atelectasis. No pulmonary nodule or mass is det ected. No pleural effusion or CT evidence of interstitial lung disease. MEDIASTINUM: Thoracic aorta is of normal caliber. The heart is not enlarged. No evidence for media stinal mass or adenopathy. HILAR STRUCTURES: No evidence for mass. No hilar adenopathy is appreciated. OTHER: No significant abnormality. CONTRAST CT ABDOMEN AND PELVIS FINDINGS: LIVER/GB: Note is made of gallstones. A couple of subcentimeter cystic lesions are seen within the li shelia. Biliary tree is of normal caliber. PANCREAS: No inflammation. No distinct mass. SPLEEN: No splenic enlargement. No lesion seen. ADRENALS: No nodule. No thickening. KIDNEYS/BLADDER: No hydronephrosis. No nephrolithiasis. No distinct renal mass. BOWEL: Right lower quadrant ostomy identified. Postoperative changes at the rectosigmoid region. Para stomal hernia redemonstrated. Abnormal soft tissue is redemonstrated in the region of the presacral s pace overall the appearance is stable relative to the PET/CT of 09/04/2020. Remnant rectum that demons trates persistent wall thickening. Recurrent or residual disease is not excluded. GENITAL ORGANS: No gross abnormality. LYMPH NODES: No greater than 1cm abdominal or pelvic lymph nodes are appreciated. AORTA: No significant abnormality. OSSEOUS STRUCTURES: No significant abnormality is seen. OTHER: No significant additional abnormality is seen. IMPRESSION: 1. Persistent increased soft tissue in the presacral space and about the rectal remnant. Recurrent or residual disease is difficult to exclude. 2. No evidence for metastatic disease. 3. A couple of a cystic lesions within the liver unchanged from prior study. Cholelithiasis.
== END | disposition home or self-care (01) ==
LOC: RADCTMAIN 12:05
PROVIDERS: ATTEND Internal Medicine Hematology & Oncology
DX: C20 Malignant neoplasm of rectum (principal); K76.89 Other specified diseases of liver; K80.20 Calculus of gallbladder without cholecystitis without obstruction
CPT/HCPCS: 82565; 84520; 71270; 74178; 36415; Q9967

== ENCOUNTER → 2020-12-07 | Outpatient (CLI) | payer MEDICAID ==
--- NOTE | 2020-12-07 13:03 | XR ---
Abdomen 1 view HISTORY: Z85.048 RECTAL CA Frontal view of the abdomen on 2 images There is contrast material present within the cecum. Postop changes are noted in the pelvis. There is no evident pneumoperitoneum or bowel obstruction. Contrast material also present in the descending a nd transverse colon. Lung bases are clear. There are overlying artifacts. Some degenerative disc guillen ge noted in the lumbar spine. IMPRESSION: Nonobstructive bowel gas pattern. Retained contrast, postop changes.
== END | disposition home or self-care (01) ==
LOC: RADFLMAIN 09:24
PROVIDERS: ATTEND Surgery
DX: C20 Malignant neoplasm of rectum (principal); Z85.048 Personal history of other malignant neoplasm of rectum, rectosigmoid junction, and anus
CPT/HCPCS: 74018

== ENCOUNTER → 2020-12-24 | Outpatient (CLI) | payer MEDICAID ==
--- NOTE | 2020-12-26 16:27 | FL ---
EXAMINATION TYPE: FL single contrast water-soluble barium enema DATE OF EXAM: 12/24/2020 COMPARISON: Correlation CT 11/29/2020 HISTORY: 60-year-old female Z85.048, history of rectal cancer. Assess for leak at the distal rectal a nastomosis. Patient status post diverting ileostomy. TECHNIQUE: A single contrast water soluble contrast barium enema study is performed with a total 500 mL Isovue-370. A total of 2 minutes 36 seconds of fluoroscopic time was utilized during procedure a nd 57 images obtained. FINDINGS: [employer] view of the abdomen shows surgical material in the midline pelvis. There is prominent retained contrast within the cecum and ascending colon. Decision was made to proceed with the study. There is an irregular fingerlike extension of contrast from the posterior margin of the distal rectal anastomosis best seen on the lateral views. This is not apparent on some of the frontal views. Findi ngs could represent a persistent leak but could also relate to surgical technique and further clinica l correlation is required. Transverse, descending, sigmoid colon are overall nondistended. There is some reflux of contrast into the ileum and extension to the patient's right mid abdominal diverticulum ileostomy. No abnormal annular constricting lesion is seen. IMPRESSION: 1. Status post distal rectal resection and re-anastomosis as well as diverting right mid abdominal il eostomy. 2. Prominent residual contrast remains within the cecum and ascending colon but decision is made to p roceed with the study. 3. There is an irregular fingerlike extension of contrast from the posterior margin of the distal rec alannah anastomosis best seen on the lateral views. This area becomes obscured on most of the frontal vie ws. Persistent leak is possible. Correlate with the appearance on the patient's outside prior study. Further correlation with surgical technique is also recommended as findings may correspond to an end- to-side anastomosis rather than leak. Images are available for review. 4. Reflux of contrast into the ileum and some retrograde emptying noted at the patient's right mid ab dominal diverting ileostomy.
== END | disposition home or self-care (01) ==
LOC: RADFLMAIN 10:19
PROVIDERS: ATTEND Surgery
DX: Z48.89 Encounter for other specified surgical aftercare (principal); Z85.048 Personal history of other malignant neoplasm of rectum, rectosigmoid junction, and anus
CPT/HCPCS: 74270; Q9967

== ENCOUNTER → 2021-04-18 | Outpatient (CLI) | payer MEDICAID ==
--- NOTE | 2021-04-20 15:22 | CT ---
EXAMINATION TYPE: CT ChestAbdPelvis w con DATE OF EXAM: 04/18/2021 INDICATION: Rectal cancer COMPARISON: 11/29/2020 CT DLP: 840.4 mGycm CONTRAST: Performed with Oral Contrast and with IV Contrast, patient injected with 100 mL of Isovue 300. TECHNIQUE: Axial images at 5 mm thick sections. Reconstructed images in the coronal plane. Delayed images through the kidneys. FINDINGS: CT CHEST: Portion of the thyroid visualized is normal. No suspicious lung nodules or focal infiltrates are present. No enlarged mediastinal or hilar adenopathy is evident. The ascending aorta diameter at the level of the main pulmonary artery is 2.7 cm. The main pulmonary artery diameter at the bifurcation is 2.[address] ABDOMEN: Liver: There are hypodensities within the superior portion of the liver present previously may be hep atic cysts. Continued follow-up is recommended. Spleen: Normal Pancreas: Normal Adrenal glands: The adrenal glands are normal. Gallbladder: Small gallstones are present. Gallbladder is distended. Kidneys: No masses are evident. No hydronephrosis is present. No cysts are present. Delayed images were obtained through the kidneys, which remain unremarkable. Aorta: Normal Inferior vena cava: Normal. CT PELVIS: There is diffuse presacral thickening. This is similar to prior exam. Loops of bowel within the abdomen and pelvis are normal. There are loops of bowel which are incom pletely distended or lack oral contrast limiting their evaluation. Appendix: Not visualized. No suspicious inflammatory change or dilated structures are evident. Urinary bladder: Decompressed limiting evaluation. Genitourinary structures: Uterus and adnexa appear normal. No free fluid is within the pelvis. Osseous structures: No suspicious lytic or sclerotic lesions. IMPRESSIONS: 1. The presacral soft tissue is persistent and appears similar to comparison without interval thicken ing. 2. No suspicious changes to suggest metastatic disease. 3. Cholelithiasis. 4. Suspected hepatic cysts. These hypodense areas are stable from comparison.
== END | disposition home or self-care (01) ==
LOC: RADCTMAIN 09:48
PROVIDERS: ATTEND Internal Medicine Hematology & Oncology
DX: C20 Malignant neoplasm of rectum (principal); K80.20 Calculus of gallbladder without cholecystitis without obstruction
CPT/HCPCS: 71260; 74177; Q9967

== ENCOUNTER 2021-12-13 09:55 | Day surgery (SDC) | payer MEDICAID ==
[2021-12-12 09:49] VITALS: BMI 28.3
[2021-12-13 10:39] VITALS: RESP 16; TEMP 98.2
[2021-12-13] MEDS ORDERED: LACTATED RINGERS 1,000 ML IV SCH (10:41)
[2021-12-13] MEDS ORDERED: ONDANSETRON 4 MG/2 ML VIAL IVP PRN (10:41)
[2021-12-13] MEDS ORDERED: LIDOCAINE 1% (10MG/ML) FOR IV START INTRADERMA PRN (10:41)
[2021-12-13] MEDS ORDERED: LACTATED RINGERS 1,000 ML IV ONE (10:41)
[2021-12-13] MEDS ORDERED: PROPOFOL 10 MG/ML 20 ML VIAL IV ONE (11:11)
--- NOTE | 2021-12-13 11:15 | P.GSHP ---
History of Present Illness H&P Date: 12/13/21 Chief Complaint: Rectal cancer 61-year-old female known to our service. Patient was diagnosed with rectal cancer 1.5-2 years ago. Patient underwent low anterior resection. Here today for follow-up endoscopy. Last flex sigmoidoscopy may the last year. Otherwise doing well. Past Medical History Past Medical History: Cancer Additional Past Medical History / Comment(s): RECTAL CANCER DX 08/20/19, has had chemo and radiation. Last chemo 07/13/19 History of Any Multi-Drug Resistant Organisms: None Reported Past Surgical History: Appendectomy, Bowel Resection, Tubal Ligation Additional Past Surgical History / Comment(s): COLONOSCOPY,LOWER ANTERIOR RESECTION 12/24/19 ILEOSTOMY, port a cath Past Anesthesia/Blood Transfusion Reactions: No Reported Reaction Smoking Status: Former smoker - Past Family History Mother Family Medical History: No Reported History Medications and Allergies Home Medications Medication Instructions Recorded Confirmed Type No Known Home Medications 12/12/21 12/13/21 History Allergies Allergy/AdvReac Type Severity Reaction Status Date / Time No Known Allergies Allergy Verified 12/13/21 10:37 Surgical - Exam Vital Signs Temp Pulse Resp BP Pulse Ox 98.2 F 77 16 129/76 97 12/13/21 10:38 12/13/21 10:38 12/13/21 10:38 12/13/21 10:38 12/13/21 10:38 Physical exam: General: Well-developed, well-nourished HEENT: Normocephalic, sclerae nonicteric Abdomen: Nontender, nondistended Extremities: No edema Neuro: Alert and oriented Assessment and Plan (1) Rectal cancer Narrative/Plan: Will proceed with colonoscopy Current Visit: No Status: Acute Code(s): C20 - MALIGNANT NEOPLASM OF RECTUM SNOMED Code(s): 795493363
--- NOTE | 2021-12-13 11:38 | P.PCN ---
Date of Procedure: 12/13/21 Procedure(s) Performed: PREOPERATIVE DIAGNOSIS: Rectal cancer POSTOPERATIVE DIAGNOSIS: Induration at rectal anastomosis with small polyp otherwise normal PROCEDURE: Colonoscopy with biopsy ANESTHESIA: MAC SURGEON: Andrea Levi M.D. SPECIMENS: Proctitis ENDOSCOPIC PROCEDURE: The patient was placed on the endoscopy table in the left decubitus position. The Olympus colonoscope was inserted into the anus and passed under direct visualization to the base of the cecum. The appendiceal orifice was visualized. From that point the scope was slowly withdrawn inspecting all surfaces carefully. There were no neoplastic inflammatory or polypoid lesions throughout the cecum, ascending, transverse, descending, or sigmoid colon. The patient's anastomosis was visualized. Adjacent to the anastomosis was a pocket of what appeared to represent granulation tissue. This was estimated to measure approximately 2 x 1 cm. Biopsies of that indurated tissue took place. This may reflect the previous abnormality seen on imaging when there was concern for possible contained perforation. An additional small 2-3 mm polyp distal rectum was noted and biopsied as well. No frankly neoplastic process was seen. The anastomosis was was widely patent. There was no visible diverticulosis. The patient was taken to the recovery room in stable condition per anesthesia guidelines. RECOMMENDATIONS: Await biopsy results. Will discuss follow-up timing after biopsy reviewed.
[2021-12-13 11:55] VITALS: BP 102/59; PULSE 74
== END 2021-12-13 12:35 | disposition home or self-care (01) ==
LOC: ORWHC2ENDO 09:55
PROVIDERS: ATTEND Surgery
DX: K51.20 Ulcerative (chronic) proctitis without complications (principal); Z85.038 Personal history of other malignant neoplasm of large intestine; Z92.21 Personal history of antineoplastic chemotherapy; Z92.3 Personal history of irradiation; Z90.49 Acquired absence of other specified parts of digestive tract; Z87.891 Personal history of nicotine dependence; Z98.51 Tubal ligation status
CPT/HCPCS: 88305; 45380; J2704

== ENCOUNTER → 2021-12-29 | Outpatient (CLI) | payer MEDICAID ==
--- NOTE | 2021-12-29 13:34 | CT ---
EXAMINATION TYPE: CT ChestAbdPelvis w con CT DLP: 991.1 mGycm, Automated exposure control for dose reduction was used. DATE OF EXAM: 12/29/2021 11:16 AM COMPARISON: None. CLINICAL INDICATION:Female, 61 years old with history of C20 Malignant neoplasm of rectum; patient fo llow up for malignant neoplasm of rectum Technique: Multiple axial images of the chest, abdomen, and pelvis were obtained. Two-dimensional cor onal and sagittal reconstructions were obtained. Contrast used:70mL mL of Isovue 300 with IV Contrast, Oral contrast used: with Oral Contrast Findings: CHEST: LUNGS/ PLEURA: The lung parenchyma appears unremarkable. AIRWAY: Patent and unremarkable. HEART: Size within normal limits. MEDIASTINUM: No gross evidence of adenopathy. VASCULATURE: No aortic aneurysm. MUSCULOSKELETAL: No acute osseous abnormalities. SOFT TISSUES/LYMPH NODES: Unremarkable. LOWER NECK: No significant findings. ABDOMEN: ABDOMEN LIVER: Diffusely hypoattenuating parenchyma. GALLBLADDER AND BILE DUCTS: Unremarkable. PANCREAS: Unremarkable. SPLEEN: Unremarkable. ADRENAL GLANDS: Unremarkable. KIDNEYS AND URETERS: No evidence of hydronephrosis or renal calculus. The ureters are unremarkable. PELVIS BLADDER: Unremarkable REPRODUCTIVE: Unremarkable. ABDOMEN & PELVIS STOMACH AND BOWEL: Similar postsurgical changes to the rectum with presacral space soft tissue and ga s which appears in similar morphology to prior. Suspected blind-ending pouch is again redemonstrated containing air. The rectum is in close proximity to the presacral space hazy soft tissue is without o ral contrast which limits evaluation. There is overall less air and stool within the rectum compared to immediate prior on 08/23/2021. No evidence of bowel obstruction. PERITONEUM: No evidence of pneumoperitoneum or free fluid. VASCULATURE: No evidence of aortic aneurysm. MUSCULOSKELETAL: No acute osseous abnormalities LYMPH NODES: No gross evidence for lymphadenopathy. SOFT TISSUE/ABDOMINAL WALL: Unremarkable IMPRESSION: 1. Postsurgical changes of the rectum without evidence of pelvic or intra-abdominal lymphadenopathy to suggest metastatic disease. Evaluation of the rectosigmoid junction soft tissues is somewhat limit ed given lack of oral contrast within the rectum and close proximity to the presacral space ill-defin ed hazy soft tissue. Slightly decompressed suspected blind-ending pouch just anterior to the sacrum r emains present. Consider follow-up imaging with MRI pelvis with IV contrast. Consider barium enema fo r further evaluation of the presacral space blind-ending pouch if clinically warranted. 2. No evidence for metastatic disease with pneumothorax. 3. Hepatic steatosis
== END | disposition home or self-care (01) ==
LOC: RADCTMAIN 09:24
PROVIDERS: ATTEND Internal Medicine Hematology & Oncology
DX: C20 Malignant neoplasm of rectum (principal); K76.0 Fatty (change of) liver, not elsewhere classified
CPT/HCPCS: 71260; 74177; Q9967 ×2

== ENCOUNTER 2022-04-22 07:48 | Emergency (ER) | payer MEDICAID ==
[2022-04-22 08:04] VITALS: TEMP 98.2
--- NOTE | 2022-04-22 08:16 | ED ---
General Adult HPI - General Chief complaint: Skin/Abscess/Foreign Body Stated complaint: Abscess Time Seen by Provider: 04/22/22 07:55 Source: patient, RN notes reviewed Mode of arrival: ambulatory Limitations: no limitations - History of Present Illness Initial comments: 32-year-old female coming in to the ED for an abscess. She noticed on abscess to right gluteal fold last night. She denies any active drainage. She admits to accompanying symptoms of chills but denies known fevers. She has tried sitz baths without relief. She has never had this before. She admits relief after having a BM this morning. Patient admits a history of hemorrhoids. Denies fever, palpitations, abdominal pain, nausea, diarrhea, vomiting. - Related Data Home Medications Medication Instructions Recorded Confirmed No Known Home Medications 12/12/21 12/13/21 Allergies Allergy/AdvReac Type Severity Reaction Status Date / Time No Known Allergies Allergy Verified 04/22/22 07:52 Review of Systems ROS Statement: Those systems with pertinent positive or pertinent negative responses have been documented in the HPI. ROS Other: All systems not noted in ROS Statement are negative. Past Medical History Past Medical History: Cancer Additional Past Medical History / Comment(s): RECTAL CANCER DX 08/20/19, has had chemo and radiation. Last chemo 07/13/19 History of Any Multi-Drug Resistant Organisms: None Reported Past Surgical History: Appendectomy, Bowel Resection, Tubal Ligation Additional Past Surgical History / Comment(s): COLONOSCOPY,LOWER ANTERIOR RESECTION 12/24/19 ILEOSTOMY, port a cath Past Anesthesia/Blood Transfusion Reactions: No Reported Reaction Past Psychological History: No Psychological Hx Reported Smoking Status: Former smoker - Past Family History Mother Family Medical History: No Reported History General Exam Limitations: no limitations General appearance: alert, in no apparent distress Head exam: Present: atraumatic, normocephalic, normal inspection Eye exam: Present: normal appearance, PERRL, EOMI. Absent: scleral icterus, conjunctival injection, periorbital swelling ENT exam: Present: normal exam Neck exam: Present: normal inspection. Absent: tenderness, meningismus, lymphadenopathy Respiratory exam: Present: normal lung sounds bilaterally. Absent: respiratory distress, wheezes, rales, rhonchi, stridor Cardiovascular Exam: Present: normal rhythm, tachycardia, normal heart sounds GI/Abdominal exam: Present: soft, normal bowel sounds Skin exam: Present: warm (Elongated, edematous, tender erythematous lesion to R buttock. No active drainage or fluctuance noted. ), dry, intact, normal color. Absent: rash Course Vital Signs 04/22/22 04/22/22 07:52 08:04 Temperature 98.4 F 98.2 F Pulse Rate 100 Respiratory 16 Rate Blood Pressure 106/53 O2 Sat by Pulse 98 Oximetry - Reevaluation(s) Reevaluation #1: 04/22/22 10:07 Pt reevaluated and updated on results. Pt updated on need for transfer of care to [facility] for continuation of care. Medical Decision Making - Medical Decision Making ^2 year old female with a PMH of colorectal cancer, coming into the ED for abscess. Labs and imaging were ordered. CT remarkable for fecal contents outside of postsurgical rectal/sigmoid colon. Case discussed with Dr. Bryant, who evaluated the patient and agrees with POC. Dr. Moreno, out of [facility] agrees and accepts patient for transfer. - Lab Data Result diagrams: 04/22/22 08:16 04/22/22 08:16 Lab Results 04/22/22 04/22/22 Range/Units 08:16 08:16 WBC 10.8 H (3.8-10.6) k/uL RBC 3.37 L (3.80-5.40) m/uL Hgb 9.7 L (11.4-16.0) gm/dL Hct 29.2 L (34.0-46.0) % MCV 86.7 (80.0-100.0) fL MCH 28.8 (25.0-35.0) pg MCHC 33.3 (31.0-37.0) g/dL RDW 14.0 (11.5-15.5) % Plt Count 235 (150-450) k/uL MPV 8.4 Neutrophils % 87 % Lymphocytes % 4 % Monocytes % 6 % Eosinophils % 0 % Basophils % 0 % Neutrophils # 9.4 H (1.3-7.7) k/uL Lymphocytes # 0.5 L (1.0-4.8) k/uL Monocytes # 0.6 (0-1.0) k/uL Eosinophils # 0.0 (0-0.7) k/uL Basophils # 0.0 (0-0.2) k/uL Sodium 134 L (137-145) mmol/L Potassium 3.5 (3.5-5.1) mmol/L Chloride 104 (98-107) mmol/L Carbon Dioxide 21 L (22-30) mmol/L Anion Gap 9 mmol/L BUN 17 (7-17) mg/dL Creatinine 0.91 (0.52-1.04) mg/dL Est GFR (CKD-EPI)AfAm 78 (>60 ml/min/1.73 sqM) Est GFR (CKD-EPI)NonAf 67 (>60 ml/min/1.73 sqM) Glucose 147 H (74-99) mg/dL Calcium 8.5 (8.4-10.2) mg/dL Total Bilirubin 1.0 (0.2-1.3) mg/dL AST 13 L (14-36) U/L ALT 13 (4-34) U/L Alkaline Phosphatase 159 H (38-126) U/L Total Protein 5.7 L (6.3-8.2) g/dL Albumin 3.0 L (3.5-5.0) g/dL Disposition Clinical Impression: Cellulitis Disposition: OTHER INSTITUTION NOT DEFINED Condition: Stable Referrals: None,Stated [Primary Care Provider] - 1-2 days Time of Disposition: 10:30 - Out of Hospital Transfer - Req. Specs Out of Hospital Transfer - Requested Specifics: Other Emergency Center ([facility])
[2022-04-22 09:01] LABS: Calcium 8.5 mg/dL (8.4-10.2); Potassium 3.5 mmol/L (3.5-5.1); Total Protein 5.7 g/dL (6.3-8.2)
[2022-04-22 09:02] LABS: Basophils % (A) 0 %; Eosinophils % (A) 0 %; HCT 29.2 % (34.0-46.0); HGB 9.7 gm/dL (11.4-16.0); Lymphocytes # (A) 0.5 k/uL (1.0-4.8); Lymphocytes % (A) 4 %; MCH 28.8 pg (25.0-35.0); MCHC 33.3 g/dL (31.0-37.0); MCV 86.7 fL (80.0-100.0); Mean Platelet Volume 8.4; Monocytes # (A) 0.6 k/uL (0-1.0); Monocytes % (A) 6 %; Neutrophils # (A) 9.4 k/uL (1.3-7.7); Neutrophils % (A) 87 %; Platelet Count 235 k/uL (150-450); RBC 3.37 m/uL (3.80-5.40); WBC 10.8 k/uL (3.8-10.6)
--- NOTE | 2022-04-22 09:35 | CT ---
EXAMINATION TYPE: CT pelvis w con CT DLP: 1095.9 mGycm, Automated exposure control for dose reduction was used. DATE OF EXAM: 04/22/2022 8:58 AM COMPARISON: CT abdomen pelvis most recent from 12/29/2021. Contracted CLINICAL INDICATION:Female, 62 years old with history of abscess; TECHNIQUE: Axial CT of the pelvis. Sagittal and coronal reformats were created on a separate worksta tion. Contrast used:100 mL of Isovue 300 with IV Contrast, Oral contrast used: without Oral Contrast FINDINGS: BLADDER: Unremarkable REPRODUCTIVE: Unremarkable. ABDOMEN & PELVIS STOMACH AND BOWEL: Postsurgical changes to the rectosigmoid junction with redemonstration feces outsi de the rectum. Large stool/feces collection just anterior to the sacrum has increased in size from pr ior. It now extends more laterally and inferiorly through the pelvic floor into the perirectal subcut aneous soft tissues. Now measuring 4.7 x 2.8 x 9.7 cm anterior to the rectum on the right and with ad ditional pocket feces anterior and left of the sacrum. Additional postsurgical changes noted with suture in the right lower quadrant abdomen. PERITONEUM: No evidence of pneumoperitoneum. VASCULATURE: No evidence of aortic aneurysm. MUSCULOSKELETAL: No acute osseous abnormalities LYMPH NODES: No gross evidence for lymphadenopathy. SOFT TISSUE/ABDOMINAL WALL: Unremarkable IMPRESSION: Increase in size of fecal contents outside the postsurgical rectum/sigmoid colon most consistent with anastomotic site breakdown. Feces extends through the pelvic floor on the right into the perirectal soft tissues/gluteal fold with subcutaneous gas. Surgical consultation recommended.
[2022-04-22] MEDS ORDERED: ONDANSETRON 4 MG/2 ML VIAL IVP STA (09:58)
[2022-04-22] MEDS ORDERED: HYDROmorphone 0.5 MG/0.5 ML SYRINGE IVP STA (09:59)
[2022-04-22] MEDS ORDERED: PIPERACILLIN-TAZOBACTAM 3.375 GM in SODIUM CHLORIDE 0.9% 100 ML IVPB STA (09:59)
[2022-04-22] MEDS ORDERED: SODIUM CHLORIDE 0.9% 500 ML 500 ML IV ONE (11:11)
[2022-04-22 11:24] VITALS: BP 94/52; PULSE 98; RESP 18
== END 2022-04-22 11:29 | disposition other institution (70) ==
LOC: EC 07:48
DX: L03.317 Cellulitis of buttock (principal); Z87.891 Personal history of nicotine dependence
CPT/HCPCS: 36415; 80053; 85025; 87040; 72193; 99283; 96365; 96375 ×2; J2543; J2405; J1170; Q9967

== ENCOUNTER → 2022-12-22 | Outpatient (CLI) | payer MEDICAID ==
--- NOTE | 2022-12-24 12:30 | CT ---
EXAMINATION TYPE: CT ChestAbdPelvis w con DATE OF EXAM: 12/22/2022 COMPARISON: 06/23/2022 and 12/29/2021 HISTORY: 62-year-old female C20, Follow up Malignant neoplasm of rectum. HX ileostomy TECHNIQUE: Contiguous axial scanning of the chest, abdomen, and pelvis performed with IV Contrast, pa tient injected with 100 mL of Isovue 300. Delayed images through the kidneys were obtained. Coronal/s agittal reconstructions performed. CT DLP: 1151.30 mGycm Automated exposure control for dose reduction was used. FINDINGS: CHEST: Heart normal size without pericardial effusion. Aorta normal caliber with conventional arch vessel branching anatomy. No thoracic lymphadenopathy by CT size criteria. Hazy dependent atelectasis posterior lower lobes. Some similar strandy scarring at the inferior lingu la. No consolidation or pleural effusion. ABDOMEN: Liver borderline in size 17.0 cm. Approximate 5 small hypodense hepatic lesions measuring up to 1.2 c m remain unchanged. No new lesions are identified. Portal venous system is patent. No biliary ductal dilatation. Gallbladder, adrenal glands, kidneys, spleen, and pancreas within normal limits. No dilated small bowel, free fluid, or free air. No mesenteric or retroperitoneal lymphadenopathy. There is some surgical material noted at the right lower quadrant near the ileocecal region. Mild cir cumferential wall thickening and mild mucosal hyperemia of the collapsed cecum, axial image 83, possi leonel due to nondistention. Some nonspecific mild inflammation is not excluded. There is a right lower quadrant loop ileostomy. The colon is collapsed. PELVIS: Mild circumferential bladder wall thickening. Marked presacral soft tissue thickening up to 1.7 cm thick as measured on sagittal series. As compare d to 04/22/2022, the previous associated modeled air and debris in this region appears to have resolve d. Some fluid density along this region measuring up to 3.7 cm wide by 5.9 cm craniocaudal by 1.7 cm thick. On 12/29/2021, this measured approximately 2.6 cm thick. Scarring extends into the ischiorectal fossa at the site of previous abnormal fluid collection seen on 04/22/2022. Uterus is anteverted. Ova juan not well delineated from adjacent bowel loops. No pelvic lymphadenopathy seen. BONES: Moderate to advanced degenerative disc disease L3-L4. Grade 1 retrolisthesis here secondary to facet arthropathy. Fatty matrix hemangioma within the T10 vertebral body. No osseous destructive process. IMPRESSION: 1. REDEMONSTRATED POSTSURGICAL CHANGES OF RIGHT LOWER QUADRANT LOOP ILEOSTOMY. 2. ADDITIONAL POSTSURGICAL CHANGES AT THE RECTUM AND PRESACRAL REGION. SOFT TISSUE THICKENING HERE ME ASURES UP TO 1.7 CM VERSUS 2.6 CM ON 12/29/2021. SOME RESIDUAL FLUID DENSITY MAY REMAIN HERE BUT NO SI GNIFICANT ACCOMPANYING INFLAMMATORY CHANGES ARE DEMONSTRATED. PROBABLE POSTSURGICAL AND POSTTREATMENT CHANGES. ONGOING FOLLOW-UP CAN BE PERFORMED. 3. OTHERWISE, NO EVIDENCE FOR RECURRENT OR METASTATIC DISEASE. 4. MILD WALL THICKENING AT THE CECUM MAY BE DUE TO MILD NONSPECIFIC INFLAMMATION VERSUS NONDISTENTION .
== END | disposition home or self-care (01) ==
LOC: RADCTMAIN 13:11
PROVIDERS: ATTEND Internal Medicine Hematology & Oncology
DX: C20 Malignant neoplasm of rectum (principal); D60.9 Acquired pure red cell aplasia, unspecified; G62.0 Drug-induced polyneuropathy; K62.89 Other specified diseases of anus and rectum; K63.89 Other specified diseases of intestine; Z71.3 Dietary counseling and surveillance
CPT/HCPCS: 71260; 74177; Q9967

== ENCOUNTER → 2023-06-22 | Outpatient (CLI) | payer MEDICAID ==
--- NOTE | 2023-06-23 13:00 | CT ---
EXAMINATION TYPE: CT ChestAbdPelvis w con DATE OF EXAM: 06/22/2023 COMPARISON: 12/22/2022, 04/09/2022 HISTORY: 63-year-old female C20, OBS FOR METS, HX OF RECTAL CA TECHNIQUE: Contiguous axial scanning of the chest, abdomen, and pelvis performed with IV Contrast, pa tient injected with 100ML mL of Isovue 300. Delayed images through the kidneys were obtained. Coronal /sagittal reconstructions performed. CT DLP: 1471.80 mGycm Automated exposure control for dose reduction was used. FINDINGS: CHEST: HEART normal size without pericardial effusion. Aorta normal caliber with conventional branching anatomy. No thoracic lymphadenopathy by CT size criteria. Strandy atelectasis or scarring in the lower lungs. No consolidation or pleural effusion. ABDOMEN: Approximate 6 hypodense lesions of the liver measuring up to 1.2 cm remain unchanged. Portal venous s ystem is patent. No biliary ductal dilatation. Gallbladder, right adrenal gland, kidneys, spleen, and pancreas within normal limits. Mild diffuse thickening of the left adrenal gland without discrete nodularity remains unchanged. No dilated small bowel, free fluid, or free air. No mesenteric or retroperitoneal lymphadenopathy. Redemonstrated right lower quadrant loop ileostomy. Residual mild stool remains within the right side of the colon. Remainder of the colon is decompressed. The diffuse presacral soft tissue thickening m easuring up to 2.5 cm thick remains unchanged. Scattered postsurgical material is present here as wel l. Pelvis: Bladder nondistended. Uterus anteverted. Ovaries not well seen may be small and postmenopausal. No ab normal fluid collection the pelvis or pelvic lymphadenopathy seen. Bones: Fatty matrix hemangioma T10 vertebral body. Moderate degenerative disc disease L-1-L2, L2-L3, L3-L4 w ith grade 1 retrolisthesis at these levels as well. Degenerative endplate sclerosis L3-L4. No osseous destructive process seen. IMPRESSION: 1. REDEMONSTRATED POSTSURGICAL CHANGE OF RIGHT LOWER QUADRANT LOOP ILEOSTOMY. 2. POSTSURGICAL CHANGE REDEMONSTRATED DISTAL RECTUM WITH PRESACRAL SOFT TISSUE THICKENING TO 2.5 CM, UNCHANGED FROM 12/22/2022. 3. A FEW SCATTERED NONSPECIFIC HEPATIC HYPODENSITIES REMAIN UNCHANGED WELL. 4. NO EVIDENCE FOR RECURRENT OR METASTATIC DISEASE.
== END | disposition home or self-care (01) ==
LOC: RADCTMAIN 13:56
PROVIDERS: ATTEND Internal Medicine Hematology & Oncology
DX: K76.89 Other specified diseases of liver (principal); M79.89 Other specified soft tissue disorders; C20 Malignant neoplasm of rectum; D60.9 Acquired pure red cell aplasia, unspecified; G62.0 Drug-induced polyneuropathy; Z71.3 Dietary counseling and surveillance; Z98.890 Other specified postprocedural states
CPT/HCPCS: 71260; 74177; Q9967

== ENCOUNTER → 2024-01-31 | Outpatient (CLI) | payer MEDICARE ==
[2024-01-31 10:11] LABS: African American GFR (CKD) 55 (>60 ml/min/1.73 sqM); Blood Urea Nitrogen 18 mg/dL (7-17); Non-African American GFR(CKD) 47 (>60 ml/min/1.73 sqM)
--- NOTE | 2024-01-31 12:11 | CT ---
EXAMINATION TYPE: CT ChestAbdPelvis w con DATE OF EXAM: 01/31/2024 COMPARISON: 06/22/2023 HISTORY: f/u rectal cancer CT DLP: 1149.2 mGycm Automated exposure control for dose reduction was used. CONTRAST: CT scan of the chest, abdomen and pelvis is performed with Oral Contrast and with IV Contrast, patien t injected with 80 mL of Isovue 300. FINDINGS: CT chest: There is no suspicious lung mass or nodule. There is no abnormal airspace/consolidative density or abnormal interstitial density. There is no pleural effusion, pleural thickening or pneumothorax. The great vessels and chest are normal there is no mediastinal, hilar or axillary adenopathy. No focal osseous lesions are seen. CT abdomen and pelvis: Gallbladder is normal without distention, pericholecystic fluid, wall thickening or gallstone. There is no biliary ductal dilatation. There is no focal mass or organomegaly involving the liver, pancreas, spleen or adrenal glands. There are a few scattered small stable hypodensities within the liver, too small to characterize with cert ainty but most likely represent simple hepatic cysts. There is no solid renal mass or hydronephrosis. There is no retroperitoneal adenopathy or hemorrhage in the caliber of the abdominal aorta is normal. There are postsurgical changes of left hemicolectomy and there is an ostomy in the right lower quadra nt. No bowel obstruction or inflammation. There is no free intraperitoneal air or fluid. There are po stsurgical changes in the rectal region. There is stable diffuse free sacral soft tissue thickening. There is no pelvic adenopathy. There is no free fluid within the pelvis. There are no focal destructive osseous lesions. IMPRESSION: 1. No definite recurrent or metastatic disease within the chest abdomen or pelvis. 2. Postsurgical changes in the abdomen and pelvis as described above with stable marked presacral sof t tissue thickening but no adenopathy. 3. Multiple small hypodensities scattered throughout the liver too small to characterize with certain ty but most likely represent hepatic cysts. They're stable compared to the prior study.
== END | disposition home or self-care (01) ==
LOC: RADCTMAIN 09:40
PROVIDERS: ATTEND Internal Medicine Hematology & Oncology
DX: C20 Malignant neoplasm of rectum
CPT/HCPCS: 36415; 71260; 74177; 82565; 84520

== ENCOUNTER → 2024-08-08 | Outpatient (CLI) | payer MEDICARE ==
[2024-08-08 11:25] LABS: African American GFR (CKD) 60 (>60 ml/min/1.73 sqM); Blood Urea Nitrogen 15 mg/dL (7-17); Non-African American GFR(CKD) 52 (>60 ml/min/1.73 sqM)
--- NOTE | 2024-08-08 13:20 | CT ---
EXAMINATION TYPE: CT ChestAbdPelvis w con CT DLP: 1687 mGycm, Automated exposure control for dose reduction was used. DATE OF EXAM: 08/08/2024 1:03 PM COMPARISON: Multiple CT chest abdomen pelvis with most recent 01/31/2024, PET CT 09/04/2020 CLINICAL INDICATION:Female, 64 years old with history of C20 RECTAL CX; PHH, f/u rectal ca Technique: Multiple axial images of the chest, abdomen, and pelvis were obtained following the intrav enous administration of 100 mL Isovue-300. Oral contrast was administered. Two-dimensional coronal an d sagittal reconstructions were obtained. Findings: CHEST: LUNGS/ PLEURA: No pleural effusion, pneumothorax, or focal consolidation. Minimal right lower lobe de pendent subsegmental atelectasis. No suspicious pulmonary nodule or mass. AIRWAY: Patent and unremarkable.. HEART: Size within normal limits.No pericardial effusion. No significant coronary artery calcificatio ns. MEDIASTINUM: No evidence of adenopathy. VASCULATURE: No aortic aneurysm. MUSCULOSKELETAL: No acute osseous abnormalities. No aggressive osseous lesion. Benign vertebral heman gioma involving the T10 vertebral body. SOFT TISSUES/LYMPH NODES: Unremarkable. LOWER NECK: No significant findings. ABDOMEN: ABDOMEN LIVER: Couple of stable cysts with largest in the hepatic dome measuring up to 1.2 cm. GALLBLADDER AND BILE DUCTS: Unremarkable. PANCREAS: Unremarkable. SPLEEN: Unremarkable. ADRENAL GLANDS: Unremarkable. KIDNEYS AND URETERS: No evidence of hydronephrosis or renal calculus. The kidneys enhance symmetrical ly. Contrast is demonstrated within both collecting systems on the delayed phase. PELVIS BLADDER: Underdistended but grossly unremarkable. REPRODUCTIVE: Unremarkable. No evidence of gas within the vaginal canal or uterus. ABDOMEN & PELVIS STOMACH AND BOWEL: Stomach and duodenum are unremarkable. Postsurgical changes from left hemicolectom y with right lower quadrant anterior abdominal wall ostomy. Postsurgical changes in the region of the rectum with redemonstration of presacral soft tissue thickening with new focal region of gas region. Enteric contrast reaches the ostomy. No evidence of bowel obstruction. PERITONEUM: No evidence of pneumoperitoneum or free fluid. VASCULATURE: No evidence of aortic aneurysm. MUSCULOSKELETAL: No acute osseous abnormalities. No aggressive osseous lesion. Multilevel degenerativ e disc disease of the lumbar spine with prominent Schmorl's node involving the inferior endplate of t he L3 vertebral body. Mild retrolisthesis of L1 on L2, L2 on L3, L3 on L4, and L4 on L5. LYMPH NODES: No evidence for lymphadenopathy. SOFT TISSUE/ABDOMINAL WALL: Unremarkable IMPRESSION: 1. Redemonstration of post surgical change of right lower quadrant loop ileostomy. 2. Postsurgical changes redemonstrated of the distal rectum with similar presacral soft tissue thicke [place] with new gas in this region. This may be within a residual rectum. Residual malignancy is not ex cluded. 3. No lymphadenopathy. 4. No evidence for metastatic disease within the chest. [facility], , 08/08/2024 1:17 PM
== END | disposition home or self-care (01) ==
LOC: RADCTMAIN 10:50
PROVIDERS: ATTEND Internal Medicine Hematology & Oncology
DX: C20 Malignant neoplasm of rectum (principal); D60.9 Acquired pure red cell aplasia, unspecified; G62.0 Drug-induced polyneuropathy; Z71.3 Dietary counseling and surveillance; Z98.890 Other specified postprocedural states
CPT/HCPCS: 82565; 84520; 71260; 74177; 36415; Q9967